=== PATIENT | male | born 1985 | race Caucasian/White ===

== ENCOUNTER 2017-10-06 18:01 | Inpatient (IN) | payer OTHER ==
[~2017-10-06] VITALS: Ht 180.3 cm; Wt 106.7 kg
[~2017-10-06 18:01] MED LIST: CLON2TAB2 PO; FEXO1TAB29 PO; HYDR50CA2 PO; LACO50TA PO; LEVE100020 PO; LEVE10007 PO; LORA2TAB PO; MULT-750 PO; PREG100C PO; PREG150C PO
[2017-10-06] MEDS ORDERED: SODIUM CHLORIDE 0.9% 1,000ML IVBOLUS ONE ×2 (18:30→19:30)
[2017-10-06] MEDS ORDERED: SODIUM CHLORIDE FLUSH 10ML SYR IVF ONE (18:30)
[2017-10-06] MEDS ORDERED: CHOL2000 PO (18:43)
[2017-10-06] MEDS ORDERED: OMEP10CA4 PO (18:43)
[2017-10-06 18:54] LABS: BASOPHILS # (AUTO) 0.02 x10^3/uL (0-0.1); BASOPHILS % (AUTO) 0 % (0-1); EOSINOPHILS # (AUTO) 0.02 x10^3/uL (0-0.4); EOSINOPHILS % (AUTO) 0 % (1-7); LYMPHOCYTES % (AUTO) 30 % (22-44); MD NO; MEAN CORPUSCULAR HGB CONC 34.4 g/dL (33.2-36.2); MEAN CORPUSCULAR VOLUME 84.3 fL (81-97); MEAN PLATELET VOLUME 7.3 fL (7.4-10.4); MONOCYTES # (AUTO) 0.64 x10^3/uL (0.2-0.8); MONOCYTES % (AUTO) 9 % (2-9); NEUTROPHILS # (AUTO) 4.32 x10^3/uL (1.8-6.8); NEUTROPHILS % (AUTO) 61 % (42-75); PLATELET COUNT 203 x10^3/uL (130-400); RED BLOOD COUNT 6.72 x10^6/uL (4.38-5.82)
[2017-10-06 19:04] LABS: ALBUMIN 3.9 g/dL (3.4-5.0); ANION GAP 6 mmol/L (5-15); CALCIUM 8.7 mg/dL (8.5-10.1); CHLORIDE 102 mmol/L (98-107); CREATININE 1.13 mg/dL (0.7-1.3)
[2017-10-06 19:08] LABS: TROPONIN I < 0.015 ng/mL (0.000-0.045)
[2017-10-06 19:15] LABS: RAPID INFLUENZA A Negative (Negative); RAPID INFLUENZA B Negative (Negative)
[2017-10-06 19:19] LABS: INTERNATIONAL NORMALIZED RATIO 1.1 (0.93-1.1); PROTHROMBIN TIME 11.4 Seconds (9.6-11.5)
[2017-10-06] MEDS ORDERED: CEFTRIAXONE PMX 1GM/50ML 50 ML ONE (19:29)
[2017-10-06] MEDS ORDERED: CEFTRIAXONE PMX 1GM/50ML 50 ML IVPB ONE (19:30)
[2017-10-06] MEDS ORDERED: AZITHROMYCIN 500 MG in SODIUM CHLORIDE 0.9% 250 ML IVPB ONE (19:30)
[2017-10-06] MEDS ORDERED: SODIUM CHLORIDE FLUSH 10ML SYR IVF PRN (20:00)
[2017-10-06] MEDS ORDERED: POLYETHYLENE GLYCOL 17 GM PACKET PO PRN (20:30)
[2017-10-06] MEDS ORDERED: ONDANSETRON 2MG/ML, 2ML IVPush PRN (20:30)
[2017-10-06] MEDS ORDERED: ACETAMINOPHEN 325 MG TABLET PO PRN (20:30)
[2017-10-06] MEDS ORDERED: GUAIFENESIN/DM 200-20MG, 10ML UDC PO PRN (20:30)
[2017-10-06] MEDS ORDERED: DOCUSATE 100 MG CAPSULE PO PRN (20:30)
[2017-10-06 21:00] VITALS: BP 129/84
[2017-10-06] MEDS: LEVETIRACETAM 500 MG TABLET PO SCH (21:00)
[2017-10-06] MEDS: PREGABALIN 150 MG CAPSULE PO SCH (21:00)
[2017-10-06] MEDS: LACOSAMIDE 50 MG TABLET PO SCH (21:00)
[2017-10-06] MEDS: NS + 20MEQ KCL 1,000 ML IV SCH (21:28)
[2017-10-06] MEDS ORDERED: KEPPRA MC SCH (21:30)
[2017-10-06] MEDS: DOXYCYCLINE 100MG TABLET PO SCH (22:12)
[2017-10-06] MEDS: hydrOXyzine 50MG TABLET PO SCH (22:12)
[2017-10-06] MEDS: FAMOTIDINE 20 MG TABLET PO SCH (22:12)
[2017-10-07 04:10] VITALS: BP 104/72
[2017-10-07] MEDS: NS + 20MEQ KCL 1,000 ML IV SCH (04:49)
[2017-10-07 05:25] LABS: BASOPHILS # (AUTO) 0.03 x10^3/uL (0-0.1); BASOPHILS % (AUTO) 1 % (0-1); EOSINOPHILS # (AUTO) 0.03 x10^3/uL (0-0.4); EOSINOPHILS % (AUTO) 0 % (1-7); LYMPHOCYTES # (AUTO) 2.26 x10^3/uL (1-3.4); LYMPHOCYTES % (AUTO) 37 % (22-44); MD NO; MEAN CORPUSCULAR HEMOGLOBIN 29.3 pg (27.5-34.5); MEAN CORPUSCULAR HGB CONC 34.6 g/dL (33.2-36.2); MEAN CORPUSCULAR VOLUME 84.8 fL (81-97); MONOCYTES # (AUTO) 0.83 x10^3/uL (0.2-0.8); MONOCYTES % (AUTO) 14 % (2-9); NEUTROPHILS # (AUTO) 2.98 x10^3/uL (1.8-6.8); NEUTROPHILS % (AUTO) 49 % (42-75); PLATELET COUNT 171 x10^3/uL (130-400); RED BLOOD COUNT 5.75 x10^6/uL (4.38-5.82); RED CELL DISTRIBUTION WIDTH 13.6 % (9.4-14.8)
[2017-10-07 05:35] LABS: CHLORIDE 110 mmol/L (98-107)
[2017-10-07 05:51] LABS: ANION GAP 7 mmol/L (5-15); CALCIUM 7.6 mg/dL (8.5-10.1); CREATININE 0.88 mg/dL (0.7-1.3)
[2017-10-07 07:27] VITALS: BP 117/76
[2017-10-07] MEDS: [UNRECOGNIZED DRUG - OTHER] HOMEMEDPO SCH (09:00)
[2017-10-07] MEDS: SENNA/DOCUSATE TABLET PO SCH (09:00)
[2017-10-07] MEDS: FEXOFENADINE HOMEMEDPO SCH (09:00)
[2017-10-07] MEDS: FAMOTIDINE 20 MG TABLET PO SCH ×2 (09:47→20:41)
[2017-10-07] MEDS: DOXYCYCLINE 100MG TABLET PO SCH ×2 (09:47→20:41)
[2017-10-07] MEDS: MULTIVITAMIN 1 TABLET PO SCH (09:47)
[2017-10-07] MEDS: LEVETIRACETAM 500 MG TABLET PO SCH ×2 (09:47→18:53)
[2017-10-07] MEDS: PREGABALIN 150 MG CAPSULE PO SCH ×2 (09:47→18:50)
[2017-10-07] MEDS: LACOSAMIDE 50 MG TABLET PO SCH ×2 (09:48→18:52)
[2017-10-07] MEDS: HYDROcodone/APAP 5/325 TABLET PO PRN (10:13)
[2017-10-07 13:42] VITALS: BP 121/78
[2017-10-07] MEDS: hydrOXyzine 50MG TABLET PO SCH (18:50)
[2017-10-07 18:55] VITALS: BP 109/78
[2017-10-07] MEDS: CEFTRIAXONE PMX 1GM/50ML 50 ML IV SCH (20:41)
[2017-10-08 03:48] VITALS: BP 101/72
[2017-10-08] MEDS ORDERED: PNEUMOCOCCAL 23 VACCINE IM-VACC ONE (06:30)
[2017-10-08 08:07] VITALS: BP 118/74
[2017-10-08] MEDS: DOXYCYCLINE 100MG TABLET PO SCH ×2 (08:46→19:24)
[2017-10-08] MEDS: LEVETIRACETAM 500 MG TABLET PO SCH ×2 (08:46→16:29)
[2017-10-08] MEDS: LACOSAMIDE 50 MG TABLET PO SCH ×2 (08:46→16:29)
[2017-10-08] MEDS: FAMOTIDINE 20 MG TABLET PO SCH ×2 (08:46→19:24)
[2017-10-08] MEDS: SENNA/DOCUSATE TABLET PO SCH (08:46)
[2017-10-08] MEDS: MULTIVITAMIN 1 TABLET PO SCH (08:46)
[2017-10-08] MEDS: PREGABALIN 150 MG CAPSULE PO SCH ×2 (08:48→16:29)
[2017-10-08] MEDS: [UNRECOGNIZED DRUG - OTHER] HOMEMEDPO SCH (08:49)
[2017-10-08] MEDS: FEXOFENADINE HOMEMEDPO SCH (08:49)
[2017-10-08 12:52] VITALS: BP 118/80
[2017-10-08] MEDS: HYDROcodone/APAP 5/325 TABLET PO PRN (15:22)
[2017-10-08 18:40] VITALS: BP 111/73
[2017-10-08] MEDS: hydrOXyzine 50MG TABLET PO SCH (19:23)
[2017-10-08] MEDS: CEFTRIAXONE PMX 1GM/50ML 50 ML IV SCH (19:24)
[2017-10-09 02:00] VITALS: BP 106/64
[2017-10-09 07:15] VITALS: BP 102/64
[2017-10-09] MEDS: LACOSAMIDE 50 MG TABLET PO SCH ×2 (08:52→17:58)
[2017-10-09] MEDS: DOXYCYCLINE 100MG TABLET PO SCH ×2 (08:53→20:12)
[2017-10-09] MEDS: LEVETIRACETAM 500 MG TABLET PO SCH ×2 (08:55→17:59)
[2017-10-09] MEDS: PREGABALIN 150 MG CAPSULE PO SCH ×2 (08:55→17:58)
[2017-10-09] MEDS: HYDROcodone/APAP 5/325 TABLET PO PRN ×3 (08:56→17:58)
[2017-10-09] MEDS: FEXOFENADINE HOMEMEDPO SCH (08:56)
[2017-10-09] MEDS: FAMOTIDINE 20 MG TABLET PO SCH ×2 (08:56→20:11)
[2017-10-09] MEDS: [UNRECOGNIZED DRUG - OTHER] HOMEMEDPO SCH (08:56)
[2017-10-09] MEDS: SENNA/DOCUSATE TABLET PO SCH (08:56)
[2017-10-09] MEDS: MULTIVITAMIN 1 TABLET PO SCH (09:00)
[2017-10-09] MEDS: CEFTRIAXONE PMX 2GM/50ML 50 ML IV SCH (11:11)
[2017-10-09 12:25] VITALS: BP 120/77
[2017-10-09] MEDS ORDERED: LORazepam 2 MG/ML, 1ML IVPush PRN (17:00)
[2017-10-09] MEDS ORDERED: GADOBUTROL 10 MMOL/10 ML PFS ONE (17:36)
[2017-10-09] MEDS: hydrOXyzine 50MG TABLET PO SCH (19:00)
[2017-10-09 19:30] VITALS: BP 113/72
[2017-10-10 02:50] VITALS: BP 99/61
[2017-10-10 06:03] LABS: BASOPHILS # (AUTO) 0.01 x10^3/uL (0-0.1); BASOPHILS % (AUTO) 0 % (0-1); EOSINOPHILS # (AUTO) 0.02 x10^3/uL (0-0.4); EOSINOPHILS % (AUTO) 0 % (1-7); LYMPHOCYTES # (AUTO) 1.99 x10^3/uL (1-3.4); LYMPHOCYTES % (AUTO) 20 % (22-44); MD NO; MEAN CORPUSCULAR HEMOGLOBIN 28.8 pg (27.5-34.5); MEAN CORPUSCULAR HGB CONC 33.6 g/dL (33.2-36.2); MEAN CORPUSCULAR VOLUME 85.9 fL (81-97); MONOCYTES # (AUTO) 0.85 x10^3/uL (0.2-0.8); MONOCYTES % (AUTO) 8 % (2-9); NEUTROPHILS # (AUTO) 7.26 x10^3/uL (1.8-6.8); NEUTROPHILS % (AUTO) 72 % (42-75); PLATELET COUNT 240 x10^3/uL (130-400); RED BLOOD COUNT 6.19 x10^6/uL (4.38-5.82); RED CELL DISTRIBUTION WIDTH 13.4 % (9.4-14.8)
[2017-10-10 06:08] LABS: ALBUMIN 3.4 g/dL (3.4-5.0); ANION GAP 7 mmol/L (5-15); CALCIUM 8.7 mg/dL (8.5-10.1); CHLORIDE 103 mmol/L (98-107)
[2017-10-10 06:09] LABS: CREATININE 0.87 mg/dL (0.7-1.3)
[2017-10-10] MEDS: methylPREDNISolone SOD SUCC 125 MG/2 ML IVPush SCH ×2 (07:45→12:25)
[2017-10-10 07:50] VITALS: BP 101/63
[2017-10-10 08:00] VITALS: BP 101/59
[2017-10-10] MEDS: LACOSAMIDE 50 MG TABLET PO SCH (09:12)
[2017-10-10] MEDS: MULTIVITAMIN 1 TABLET PO SCH (09:12)
[2017-10-10] MEDS: HYDROcodone/APAP 5/325 TABLET PO PRN (09:15)
[2017-10-10] MEDS: PREGABALIN 150 MG CAPSULE PO SCH (09:15)
[2017-10-10] MEDS: DOXYCYCLINE 100MG TABLET PO SCH (09:16)
[2017-10-10] MEDS: FEXOFENADINE HOMEMEDPO SCH (09:18)
[2017-10-10] MEDS: SENNA/DOCUSATE TABLET PO SCH (09:18)
[2017-10-10] MEDS: [UNRECOGNIZED DRUG - OTHER] HOMEMEDPO SCH (09:18)
[2017-10-10] MEDS: LEVETIRACETAM 500 MG TABLET PO SCH (09:18)
[2017-10-10] MEDS: FAMOTIDINE 20 MG TABLET PO SCH (09:18)
[2017-10-10] MEDS: CEFTRIAXONE PMX 2GM/50ML 50 ML IV SCH (12:25)
[2017-10-10] MEDS ORDERED: DOXY100T PO (12:46)
[2017-10-10] MEDS ORDERED: CEFD300C37 PO (12:46)
[2017-10-10 13:26] VITALS: BP 120/79
[2017-10-10] MEDS ORDERED: PRED10TA PO (15:01)
[2017-10-10] MEDS ORDERED: GUAI100G2 PO (15:03)
== END 2017-10-10 15:15 | disposition home or self-care (01) | DRG 871 ==
LOC: ED 19:13 → EDIP 19:31 → 3NE 20:50 → DCLOUNGE 10-10 14:55
PROVIDERS: ADMIT Family Medicine; ATTEND Family Medicine
DX: A41.9 Sepsis, unspecified organism (principal); J96.01 Acute respiratory failure with hypoxia; R65.21 Severe sepsis with septic shock; D75.1 Secondary polycythemia; J15.9 Unspecified bacterial pneumonia; E87.1 Hypo-osmolality and hyponatremia; G93.89 Other specified disorders of brain; Z88.8 Allergy status to other drugs, medicaments and biological substances; F41.0 Panic disorder [episodic paroxysmal anxiety]; F43.10 Post-traumatic stress disorder, unspecified; G40.901 Epilepsy, unspecified, not intractable, with status epilepticus; Z83.3 Family history of diabetes mellitus; Z87.820 Personal history of traumatic brain injury
CPT/HCPCS: 36415; 70553; 71045; 80048; 82040; 83605; 83735; 84145; 84484; 85025; 85379; 85610; 85730; 86631; 86632; 86635; 87040; 87205; 87400; 90732; 93005; 96361; 96365; 96368; A9585; J0456; J0696; J3480; J2930; J7030; J7050; J7512

== ENCOUNTER 2018-03-21 13:50 | Emergency (ER) | payer OTHER ==
[~2018-03-21] VITALS: Ht 177.8 cm; Wt 90.0 kg
[~2018-03-21 13:50] MED LIST changes: +CEFD300C37 PO; +CHOL2000 PO; +DOXY100T PO; +GUAI100G2 PO; +OMEP10CA4 PO; +PRED10TA PO
[2018-03-21] MEDS ORDERED: KETOROLAC 30 MG/1 ML ONE (14:14)
[2018-03-21 14:26] LABS: BASOPHILS # (AUTO) 0.03 x10^3/uL (0-0.1); BASOPHILS % (AUTO) 1 % (0-1); EOSINOPHILS # (AUTO) 0.02 x10^3/uL (0-0.4); EOSINOPHILS % (AUTO) 0 % (1-7); LYMPHOCYTES # (AUTO) 2.23 x10^3/uL (1-3.4); LYMPHOCYTES % (AUTO) 42 % (22-44); MD NO; MEAN CORPUSCULAR HEMOGLOBIN 29.3 pg (27.5-34.5); MEAN CORPUSCULAR HGB CONC 34.3 g/dL (33.2-36.2); MEAN CORPUSCULAR VOLUME 85.4 fL (81-97); MEAN PLATELET VOLUME 7.3 fL (7.4-10.4); MONOCYTES # (AUTO) 0.49 x10^3/uL (0.2-0.8); MONOCYTES % (AUTO) 9 % (2-9); NEUTROPHILS # (AUTO) 2.53 x10^3/uL (1.8-6.8); NEUTROPHILS % (AUTO) 48 % (42-75); PLATELET COUNT 239 x10^3/uL (130-400); RED BLOOD COUNT 5.98 x10^6/uL (4.38-5.82); RED CELL DISTRIBUTION WIDTH 13.3 % (9.4-14.8)
[2018-03-21] MEDS ORDERED: KETOROLAC 30 MG/1 ML IVPush ONE (14:30)
[2018-03-21 14:35] LABS: ANION GAP 4 mmol/L (5-15); CALCIUM 8.8 mg/dL (8.5-10.1); CHLORIDE 107 mmol/L (98-107); CREATININE 0.87 mg/dL (0.7-1.3)
[2018-03-21 15:01] VITALS: BP 118/64
== END 2018-03-21 15:26 | disposition home or self-care (01) ==
LOC: ED 15:00
DX: G40.409 Other generalized epilepsy and epileptic syndromes, not intractable, without status epilepticus (principal)
CPT/HCPCS: 36415; 80048; 85025; 96374; 99284; J1885

== ENCOUNTER 2018-08-13 14:02 | Emergency (ER) | payer OTHER ==
[~2018-08-13] VITALS: Ht 180.3 cm; Wt 116.4 kg
[~2018-08-13 14:02] MED LIST changes: -CLON2TAB2 PO; +CLON2TAB9 PO
[2018-08-13 14:10] VITALS: BP 132/74
[2018-08-13] MEDS ORDERED: MICROFIBRILLAR COLLAGEN 0.5GM/PACK TP ONE (14:30)
[2018-08-13] MEDS ORDERED: BACITRACIN ZINC OINT 500U/GM, 0.9 GM ONE (14:56)
== END 2018-08-13 15:26 | disposition home or self-care (01) ==
LOC: ED 14:54
DX: S61.012A Laceration without foreign body of left thumb without damage to nail, initial encounter (principal); G40.909 Epilepsy, unspecified, not intractable, without status epilepticus; X58.XXXA Exposure to other specified factors, initial encounter; Y93.89 Activity, other specified; Y92.009 Unspecified place in unspecified non-institutional (private) residence as the place of occurrence of the external cause; Y99.8 Other external cause status
CPT/HCPCS: 99283

== ENCOUNTER 2019-03-27 10:04 | Emergency (ER) | payer OTHER ==
[~2019-03-27] VITALS: Ht 180.3 cm; Wt 118.0 kg
[~2019-03-27 10:04] MED LIST changes: +CALC-116 PO; +HYDROXYZINE PAMOATE PO; +Vitamin E PO; +[UNRECOGNIZED DRUG - CODE]; +keppra PO; +magnesium PO; +vimpat PO
[2019-03-27] MEDS ORDERED: LEVETIRACETAM 500 MG in SODIUM CHLORIDE 0.9% 100 ML IV ONE (10:30)
[2019-03-27] MEDS ORDERED: SODIUM CHLORIDE FLUSH 10ML SYR IVF ONE (10:30)
[2019-03-27 10:51] LABS: BASOPHILS # (AUTO) 0.01 x10^3/uL (0-0.1); BASOPHILS % (AUTO) 0 % (0-1); EOSINOPHILS # (AUTO) 0.01 x10^3/uL (0-0.4); EOSINOPHILS % (AUTO) 0 % (1-7); LYMPHOCYTES # (AUTO) 1.42 x10^3/uL (1-3.4); LYMPHOCYTES % (AUTO) 22 % (22-44); MD NO; MEAN CORPUSCULAR HEMOGLOBIN 29.7 pg (27.5-34.5); MEAN CORPUSCULAR HGB CONC 33.9 g/dL (33.2-36.2); MEAN CORPUSCULAR VOLUME 87.9 fL (81-97); MEAN PLATELET VOLUME 7.1 fL (7.4-10.4); MONOCYTES # (AUTO) 0.45 x10^3/uL (0.2-0.8); MONOCYTES % (AUTO) 7 % (2-9); NEUTROPHILS # (AUTO) 4.67 x10^3/uL (1.8-6.8); NEUTROPHILS % (AUTO) 71 % (42-75); PLATELET COUNT 264 x10^3/uL (130-400); RED BLOOD COUNT 6.37 x10^6/uL (4.38-5.82); RED CELL DISTRIBUTION WIDTH 13.1 % (9.4-14.8)
[2019-03-27 11:04] LABS: ALANINE AMINOTRANSFERASE 112 U/L (12-78); ALBUMIN 4.4 g/dL (3.4-5.0); ANION GAP 8 mmol/L (5-15); CALCIUM 9.3 mg/dL (8.5-10.1); CHLORIDE 109 mmol/L (98-107); CREATININE 0.95 mg/dL (0.7-1.3); SALICYLATE LEVEL 2.2 mg/dL (2.8-20.0)
[2019-03-27 11:06] LABS: ALKALINE PHOSPHATASE 79 U/L (45-117); BILIRUBIN,TOTAL 0.8 mg/dL (0.2-1.0); TOTAL PROTEIN 8.1 g/dL (6.4-8.2)
[2019-03-27 12:31] VITALS: BP 145/78
== END 2019-03-27 12:34 | disposition home or self-care (01) ==
LOC: ED 10:53
DX: G40.319 Generalized idiopathic epilepsy and epileptic syndromes, intractable, without status epilepticus (principal); F17.200 Nicotine dependence, unspecified, uncomplicated
CPT/HCPCS: 36415; 71045; 80053; 80177; 80307; 85025; 93005; 96365; 99284; J1953

== ENCOUNTER 2019-09-15 00:59 | Emergency (ER) | payer OTHER ==
[~2019-09-15] VITALS: Ht 175.3 cm; Wt 112.0 kg
[~2019-09-15 00:59] MED LIST changes: -OMEP10CA4 PO; +OMEP10CA5 PO
[2019-09-15 01:03] VITALS: BP 135/84
[2019-09-15] MEDS ORDERED: LIDOCAINE-MPF 1%, 5ML ONE (01:24)
[2019-09-15] MEDS ORDERED: LIDOCAINE-MPF 1%, 5ML INFIL ONE (01:30)
== END 2019-09-15 01:56 | disposition home or self-care (01) ==
LOC: ED 01:50
DX: S61.211D Laceration without foreign body of left index finger without damage to nail, subsequent encounter (principal); F17.200 Nicotine dependence, unspecified, uncomplicated; G40.909 Epilepsy, unspecified, not intractable, without status epilepticus; Z72.89 Other problems related to lifestyle; X58.XXXD Exposure to other specified factors, subsequent encounter
CPT/HCPCS: 12041; 99284